=== PATIENT | female | born 1965 | race Caucasian/White ===

== ENCOUNTER 2020-10-21 05:37 | Outpatient (CLI) | payer BC ==
[~2020-10-21] VITALS: Ht 172.7 cm; Wt 93.9 kg
[2020-10-21] MEDS ORDERED: CALC-880 PO (16:21)
== END 2020-10-21 16:38 | disposition home or self-care (01) ==
LOC: PREOP 05:37
PROVIDERS: ATTEND Surgery
DX: Z01.818 Encounter for other preprocedural examination (principal)

== ENCOUNTER 2020-10-28 08:18 | Day surgery (SDC) | payer BC ==
[~2020-10-28] VITALS: Ht 172.7 cm; Wt 93.9 kg
[2020-10-28] VITALS (7 sets, daily range): BP systolic 109–123; BP diastolic 69–75
[~2020-10-28 08:18] MED LIST: CALC-880 PO
[2020-10-28] MEDS ORDERED: LACTATED RINGERS 1,000 ML IV ONE (08:23)
--- NOTE | 2020-10-28 08:47 | Progress Note-Pre Operative ---
Pre-Operative Progress Note H&P Reviewed The H&P was reviewed, patient examined and no changes noted. Time Seen by Provider: 08:45 Date H&P Reviewed: Oct 28, 2020 Time H&P Reviewed: 08:45 Pre-Operative Diagnosis: screening colonoscopy VINNIE BERRY DO Oct 28, 2020 08:47
[2020-10-28] MEDS ORDERED: LACTATED RINGERS 1,000 ML IV STA (09:05)
[2020-10-28] MEDS ORDERED: MIDAZOLAM 2 MG/2 ML (VERSED) VIAL ONE (09:25)
[2020-10-28] MEDS ORDERED: proPOfol 200 MG/20 ML (DIPRIVAN) VIAL IV ONE (09:25)
--- NOTE | 2020-10-28 10:03 | Progress Note-Post Operative ---
Post-Operative Progess Note Surgeon (s)/Hat Forming Machine Operator (s) Surgeon VINNIE BERRY DO Hat Forming Machine Operator: NADIR MaguireII Pre-Operative Diagnosis screening colonoscopy Post-Operative Diagnosis polyp diverticula int hemorrhoids ext hem Procedure & Operative Findings Date of Procedure 10/28/20 Procedure Performed/Findings Colonoscopy with hot bx PROCEDURE NOTE: After informed consent was obtained, the patient was brought to the endoscopy suite, placed in bed in left lateral decubitus position. She was administered IV sedation by the REFLECTOR [employer]ER who then monitored her vitals the entire time, heart rate, blood pressure and pulse ox and the scope was inserted, pushed all the way to about 150 cm and pushed into the cecum, took a picture of appendiceal orifice. I was able to get into the terminal ileum and took a picture. I saw a small polyp just outside the TI and did a hot biopsy to remove; took 2 bites. Then slowly withdrew the scope insufflating to look circumferentially at the wild starting in the cecum, up the ascending colon to the hepatic flexure, then down the transverse colon, splenic flexure, into the descending colon down in the sigmoid (where I saw a few very early diverticula) and then into the rectal vault. Saw another flat polyp and did another hot biopsy here. Finally retroflexed the scope and took a picture of the internal hemorrhoids. She also had some external hemorrhoids. The patient tolerated the procedure. She was recovered in endoscopy suite. Anesthesia Type IV sedation by anesthesia Estimated Blood Loss Estimated blood loss (mL): scant Specimens/Packing Specimens Removed cecal polyp rectal polyp VINNIE BERRY DO Oct 28, 2020 10:03
--- NOTE | 2020-10-28 10:04 | Endoscopy Discharge Instruct ---
Endo Procedure/Findings Findings 1.: Polyp 2.: Diverticulosis 3.: Internal Hemorrhoids Discharge Instructions - Activity: You might feel a little sleepy until tomorrow. This is due to the medicine you received to relax you. Until tomorrow, you should: NOT drive a car, operate machinery or power tools. NOT drink any alcoholic beverages. NOT make any important decisions or sign importortant papers. Do not return to work until tomorrow, unless otherwise instructed. Resume previous activities tomorrow. Diet: Start by taking liquids. If you tolerate liquids, advance to solid food. 1.: Colonscopy in 5 years Notify Physician - If you experience excessive bleeding, unusual abdominal pain, fever, or chest pain, contact your doctor immediately. VINNIE BERRY DO Oct 28, 2020 10:04
--- NOTE | 2020-10-28 15:11 | Anesthesia-General Post-Op ---
MAC Patient Condition Mental Status/LOC: Same as Preop Cardiovascular: Satisfactory Nausea/Vomiting: Absent Respiratory: Satisfactory Pain: Controlled Complications: Absent Post Op Complications Complications None Follow Up Care/Instructions Patient Instructions None needed. Anesthesiology Discharge Order Discharge Order Patient was seen after the procedure and she was doing well, no complaints, stable vital signs, no apparent adverse anesthesia problems. CINTHIA SRINIVASAN DO Oct 28, 2020 15:11
== END 2020-10-28 10:40 | disposition home or self-care (01) ==
LOC: ENDO 08:18
PROVIDERS: ATTEND Surgery
DX: Z12.11 Encounter for screening for malignant neoplasm of colon (principal); D12.0 Benign neoplasm of cecum; K62.1 Rectal polyp; K57.30 Diverticulosis of large intestine without perforation or abscess without bleeding; K64.8 Other hemorrhoids; K64.4 Residual hemorrhoidal skin tags; E66.9 Obesity, unspecified; Z68.31 Body mass index [BMI] 31.0-31.9, adult; Z79.899 Other long term (current) drug therapy
CPT/HCPCS: 88305

== ENCOUNTER → 2021-03-18 | Outpatient (CLI) | payer BC | LOC: LAB FS 10:02 | PROVIDERS: ATTEND Orthopaedic Surgery | DX: Z01.812 Encounter for preprocedural laboratory examination (principal); Z20.822 Contact with and (suspected) exposure to COVID-19 | CPT/HCPCS: 87635 ==

== ENCOUNTER → 2021-04-04 | Outpatient (CLI) | payer BC | LOC: LAB FS 10:05 | PROVIDERS: ATTEND Orthopaedic Surgery | DX: Z01.812 Encounter for preprocedural laboratory examination (principal); Z20.822 Contact with and (suspected) exposure to COVID-19 | CPT/HCPCS: 87635 ==